=== PATIENT | male | born 1940 | race Caucasian/White ===

== ENCOUNTER → 2018-05-11 | Outpatient (CLI) | payer MEDICARE ==
[~2018-05-11] MED LIST: ASPIRIN ADULT L81 M1; CALCIUM1 CAP; LISINOPRIL-HYDR1 TA1 PO; PERCOCET 325 MG1 TA5 PO; PRINIVIL20 MG; TAMIFLU75 MG PO; VITAMIN D1000 IU
== END | disposition home or self-care (01) ==
LOC: CARD 08:08
DX: R00.1 Bradycardia, unspecified (principal)

== ENCOUNTER → 2019-05-31 | Outpatient (CLI) | payer MEDICARE ==
[2019-05-31 07:44] LABS: BASO % 0.5 % (0.0-1.0); EOS # 0.1 10*3/uL (0.0-0.4); EOS % 1.4 % (1.0-4.0); HEMATOCRIT 40.4 % (42.0-52.0); HEMOGLOBIN 13.7 g/dl (14.0-18.0); LYMPH # 0.7 10*3/uL (1.3-4.4); LYMPH % 16.5 % (27.0-41.0); MEAN CELL VOLUME 94.6 fl (80.0-94.0); MEAN CORPUSCULAR HGB 32.1 pg (27.0-31.0); MEAN CORPUSCULAR HGB CONC 33.9 g/dl (33.0-37.0); MEAN PLATELET VOLUME 10.2 fl (9.6-12.3); MONO # 0.5 10*3/uL (0.1-1.0); NEUT # 2.9 10*3/uL (2.3-7.9); NEUT % 70.4 % (47.0-73.0); PLATELET COUNT AUTOMATED 195 10*3/uL (130-400); RED BLOOD COUNT 4.27 10*6/uL (4.50-5.90); RED CELL DISTRI WIDTH 12.5 % (0-14.5); WHITE BLOOD COUNT 4.2 10*3/uL (4.8-10.8)
[2019-05-31 08:13] LABS: ALBUMIN 3.6 gm/dl (3.1-4.5); BUN 19 mg/dl (7-24); CHLORIDE 104 mmol/L (98-107); CHOLESTEROL 193 mg/dL (<200); CREATININE 1.13 mg/dL (0.70-1.30); POTASSIUM 3.9 mmol/L (3.5-5.1); SGOT/AST 16 IU/L (3-35); SGPT/ALT 15 U/L (12-78); SODIUM 140 mmol/L (136-145); TOTAL PROTEIN 6.7 gm/dL (6.4-8.2); TRIGLYCERIDES 70 mg/dl (<150); VLDL CHOLESTEROL 14 mg/dL (6-40)
[2019-05-31 08:19] LABS: ALKALINE PHOSPHATASE 83 U/L (45-117); FREE T4 0.99 ng/dl (0.76-1.46); HDL CHOLESTEROL 62 mg/dl (40-60); LDL CHOLESTEROL 117 mg/dL (9-159)
[2019-05-31 10:06] LABS: VITAMIN D, 25-HYDROXY 32.5 ng/mL (30-100)
== END | disposition home or self-care (01) ==
LOC: LAB 07:21
PROVIDERS: Internal Medicine
DX: Z12.5 Encounter for screening for malignant neoplasm of prostate (principal); Z13.21 Encounter for screening for nutritional disorder; Z13.220 Encounter for screening for lipoid disorders; E55.9 Vitamin D deficiency, unspecified; I10 Essential (primary) hypertension; E11.9 Type 2 diabetes mellitus without complications

== ENCOUNTER → 2020-07-22 | Outpatient (CLI) | payer MEDICARE ==
[2020-07-22 09:08] LABS: BASO % 0.5 % (0.0-1.0); EOS # 0.1 10*3/uL (0.0-0.4); EOS % 2.5 % (1.0-4.0); HEMATOCRIT 43.9 % (42.0-52.0); LYMPH # 0.8 10*3/uL (1.3-4.4); LYMPH % 14.2 % (27.0-41.0); MEAN CELL VOLUME 93.4 fl (80.0-94.0); MEAN CORPUSCULAR HGB 30.4 pg (27.0-31.0); MEAN CORPUSCULAR HGB CONC 32.6 g/dl (33.0-37.0); MEAN PLATELET VOLUME 11.2 fl (9.6-12.3); MONO # 0.6 10*3/uL (0.1-1.0); MONO % 10.5 % (3.0-9.0); NEUT # 4.1 10*3/uL (2.3-7.9); NEUT % 71.9 % (47.0-73.0); PLATELET COUNT AUTOMATED 238 10*3/uL (130-400); RED CELL DISTRI WIDTH 12.3 % (0-14.5); WHITE BLOOD COUNT 5.6 10*3/uL (4.8-10.8)
[2020-07-22 09:27] LABS: ALBUMIN 3.7 gm/dl (3.1-4.5); ALKALINE PHOSPHATASE 89 U/L (45-117); BUN 16 mg/dl (7-24); CHLORIDE 104 mmol/L (98-107); CHOLESTEROL 207 mg/dL (<200); CREATININE 1.18 mg/dL (0.70-1.30); FREE T4 1.01 ng/dl (0.76-1.46); HDL CHOLESTEROL 65 mg/dl (40-60); LDL CHOLESTEROL 125 mg/dL (9-159); POTASSIUM 3.7 mmol/L (3.5-5.1); SGOT/AST 16 IU/L (3-35); SGPT/ALT 14 U/L (12-78); SODIUM 140 mmol/L (136-145); TOTAL PROTEIN 7.3 gm/dL (6.4-8.2); TRIGLYCERIDES 85 mg/dl (<150); VLDL CHOLESTEROL 17 mg/dL (6-40)
[2020-07-22 10:13] LABS: VITAMIN D, 25-HYDROXY 48.4 ng/mL (30-100)
== END | disposition home or self-care (01) ==
LOC: LAB 07:48
PROVIDERS: ATTEND Internal Medicine
DX: Z12.5 Encounter for screening for malignant neoplasm of prostate (principal); I11.0 Hypertensive heart disease with heart failure; I50.32 Chronic diastolic (congestive) heart failure; I25.10 Atherosclerotic heart disease of native coronary artery without angina pectoris; K59.00 Constipation, unspecified; J43.2 Centrilobular emphysema; R42 Dizziness and giddiness; E55.9 Vitamin D deficiency, unspecified; R53.81 Other malaise; R79.89 Other specified abnormal findings of blood chemistry; G56.01 Carpal tunnel syndrome, right upper limb

== ENCOUNTER → 2021-12-04 | Outpatient (CLI) | payer MEDICARE | END | disposition home or self-care (01) | LOC: US 08:53 | PROVIDERS: ATTEND Internal Medicine | DX: I65.23 Occlusion and stenosis of bilateral carotid arteries (principal) ==

== ENCOUNTER → 2022-04-20 | Outpatient (CLI) | payer MEDICARE | END | disposition home or self-care (01) | LOC: CARD 08:03 | PROVIDERS: ATTEND Internal Medicine | DX: I08.0 Rheumatic disorders of both mitral and aortic valves (principal) ==

== ENCOUNTER 2022-11-01 05:31 | Emergency (ER) | payer MEDICARE ==
[~2022-11-01] VITALS: Ht 172.7 cm; Wt 3.9 kg
[2022-11-01 05:40] VITALS: BP 196/63
[2022-11-01] MEDS ORDERED: ZITHROMAX250 MG PO (07:20)
[2022-11-01] MEDS ORDERED: PAXLOVID 300-11 EAC2 PO (07:20)
== END 2022-11-01 07:24 | disposition home or self-care (01) ==
LOC: ED 05:31
DX: U07.1 COVID-19 (principal); Z88.0 Allergy status to penicillin; Z98.890 Other specified postprocedural states; R91.8 Other nonspecific abnormal finding of lung field

== ENCOUNTER → 2024-09-06 | Day surgery (SDC) | payer MEDICARE ==
[~2024-09-06] VITALS: Ht 172.7 cm; Wt 61.2 kg
[~2024-09-06] MED LIST changes: +AMLODIPINE BESY10 MG PO; +ATORVASTATIN CA40 M1 PO; +AVODART0.5 M1 PO; +Balanced Salt Solution 500 ML OPH SCH; +CARVEDILOL3.125 MG PO; +FUROSEMIDE20 M1 PO; +GLIMEPIRIDE4 M1 PO; +JARDIANCE10 MG PO; +LASIX20 MG PO; +LISINOPRIL5 MG PO; +METOPROLOL SUCC50 M1 PO; +Midazolam Hydrochloride 2 MG/2 ML VIAL IV ONE; +OFLOXACIN 0.3% 5 ML BOTTLE ONE; +OFLOXACIN 0.3% 5 ML BOTTLE OPH SCH; +PAXLOVID 300-11 EAC2 PO; +PHENYLEPHRINE/KETOROLAC 4 ML in Balanced Salt Solution 500 ML OPH SCH; +POVIDONE IODINE 5% OPHTHALMIC 30 ML BOTTLE OPH ONE; +POVIDONE IODINE 5% OPHTHALMIC 30 ML BOTTLE OPH SCH; +Phenylephrine Hydrochloride 2 ML BOT OPH ONE; +Phenylephrine Hydrochloride 2 ML BOT OPH SCH; +Proparacaine Hydrochloride 15 ML BOT OPH ONE; +Proparacaine Hydrochloride 15 ML BOT OPH SCH; +SODIUM CHLORIDE 0.9% 1,000 ML IV SCH; +TETRACAINE HCL 10 DROP BOT OPH SCH; +TROPICAMIDE 3 ML BOT OPH ONE; +TROPICAMIDE 3 ML BOT OPH SCH; +Tetracaine Hydrochloride 0.5% 4 ML BOT OPH ONE; +Tetracaine Hydrochloride 0.5% 4 ML BOT OPH SCH; +ZITHROMAX250 MG PO; +prednisoLONE acetate 1% OPHTHALMIC 5 ML BOT OPH ONE; +prednisoLONE acetate 1% OPHTHALMIC 5 ML BOT OPH SCH
[2024-09-06 13:58] VITALS: BP 190/68
[2024-09-06 15:05] VITALS: BP 167/68
[2024-09-06 15:20] VITALS: BP 189/71
[2024-09-06 15:42] VITALS: BP 192/67
== END | disposition home or self-care (01) ==
LOC: SDC 09-04 10:15
PROVIDERS: ATTEND Ophthalmology
DX: E11.36 Type 2 diabetes mellitus with diabetic cataract (principal); H25.12 Age-related nuclear cataract, left eye; I10 Essential (primary) hypertension; Z86.16 Personal history of COVID-19; Z88.0 Allergy status to penicillin; Z79.82 Long term (current) use of aspirin; Z79.899 Other long term (current) drug therapy; Z98.41 Cataract extraction status, right eye; Z98.890 Other specified postprocedural states

== ENCOUNTER → 2025-04-24 | Outpatient (CLI) | payer MEDICARE ==
[~2025-04-24] MED LIST changes: -Balanced Salt Solution 500 ML OPH SCH; -Midazolam Hydrochloride 2 MG/2 ML VIAL IV ONE; -OFLOXACIN 0.3% 5 ML BOTTLE ONE; -OFLOXACIN 0.3% 5 ML BOTTLE OPH SCH; -PHENYLEPHRINE/KETOROLAC 4 ML in Balanced Salt Solution 500 ML OPH SCH; -POVIDONE IODINE 5% OPHTHALMIC 30 ML BOTTLE OPH ONE; -POVIDONE IODINE 5% OPHTHALMIC 30 ML BOTTLE OPH SCH; -Phenylephrine Hydrochloride 2 ML BOT OPH ONE; -Phenylephrine Hydrochloride 2 ML BOT OPH SCH; -Proparacaine Hydrochloride 15 ML BOT OPH ONE; -Proparacaine Hydrochloride 15 ML BOT OPH SCH; -SODIUM CHLORIDE 0.9% 1,000 ML IV SCH; -TETRACAINE HCL 10 DROP BOT OPH SCH; -TROPICAMIDE 3 ML BOT OPH ONE; -TROPICAMIDE 3 ML BOT OPH SCH; -Tetracaine Hydrochloride 0.5% 4 ML BOT OPH ONE; -Tetracaine Hydrochloride 0.5% 4 ML BOT OPH SCH; -prednisoLONE acetate 1% OPHTHALMIC 5 ML BOT OPH ONE; -prednisoLONE acetate 1% OPHTHALMIC 5 ML BOT OPH SCH
[2025-04-24 08:28] LABS: BASO # 0.0 10*3/uL (0.0-0.1); BASO % 0.7 % (0.0-1.0); EOS # 0.1 10*3/uL (0.0-0.4); EOS % 2.2 % (1.0-4.0); MEAN CELL VOLUME 92.7 fl (80.0-94.0); MEAN CORPUSCULAR HGB 31.3 pg (27.0-31.0); MEAN PLATELET VOLUME 10.7 fl (9.6-12.3); MONO # 0.5 10*3/uL (0.1-1.0); MONO % 8.9 % (3.0-9.0); NEUT # 4.0 10*3/uL (2.3-7.9); NEUT % 68.7 % (47.0-73.0); NUCLEATED RED BLOOD CELL 0.0 % (0.0-0.0); NUCLEATED RED BLOOD CELL 0.0 10*3/uL (0.0-0.0); PLATELET COUNT AUTOMATED 197 10*3/uL (130-400); RED CELL DISTRI WIDTH 12.9 % (0-14.5)
[2025-04-24 09:17] LABS: VITAMIN D, 25-HYDROXY 47.7 ng/mL (30-100)
[2025-04-24 09:18] LABS: BUN 13 mg/dl (9-23); FREE T4 1.14 ng/dl (0.89-1.76); LDL CHOLESTEROL 116 mg/dL (9-159)
[2025-04-24 09:24] LABS: SGPT/ALT < 7 U/L (5-49)
== END | disposition home or self-care (01) ==
LOC: LAB 07:28
PROVIDERS: ATTEND Internal Medicine
DX: E11.9 Type 2 diabetes mellitus without complications (principal); E55.9 Vitamin D deficiency, unspecified; D51.9 Vitamin B12 deficiency anemia, unspecified; Z13.0 Encounter for screening for diseases of the blood and blood-forming organs and certain disorders involving the immune mechanism; Z13.1 Encounter for screening for diabetes mellitus; Z13.21 Encounter for screening for nutritional disorder; Z13.220 Encounter for screening for lipoid disorders; Z13.228 Encounter for screening for other metabolic disorders; Z13.6 Encounter for screening for cardiovascular disorders; Z13.89 Encounter for screening for other disorder

== ENCOUNTER → 2025-05-18 | Outpatient (CLI) | payer MEDICARE ==
[2025-05-18 10:13] LABS: BUN 12 mg/dl (9-23)
== END ==
LOC: LAB 09:07
PROVIDERS: ATTEND Internal Medicine
DX: I10 Essential (primary) hypertension (principal); Z13.0 Encounter for screening for diseases of the blood and blood-forming organs and certain disorders involving the immune mechanism; Z13.1 Encounter for screening for diabetes mellitus; Z13.21 Encounter for screening for nutritional disorder; Z13.220 Encounter for screening for lipoid disorders; Z13.228 Encounter for screening for other metabolic disorders; Z13.29 Encounter for screening for other suspected endocrine disorder; Z13.6 Encounter for screening for cardiovascular disorders; Z13.89 Encounter for screening for other disorder; Z13.9 Encounter for screening, unspecified

== ENCOUNTER → 2025-07-19 | Outpatient (CLI) | payer MEDICARE | END | disposition home or self-care (01) | LOC: CT 07:47 | PROVIDERS: ATTEND Physician Assistant Medical | DX: J43.9 Emphysema, unspecified (principal); R91.1 Solitary pulmonary nodule; I25.10 Atherosclerotic heart disease of native coronary artery without angina pectoris ==